=== PATIENT | male | born 1955 | race Caucasian/White ===

== ENCOUNTER → 2023-06-12 10:00 | Outpatient (REF) | payer OTHER, SELFPAY | LOC: HWRAD 10:00 | PROVIDERS: ATTENDING PHYSICIAN Internal Medicine Gastroenterology; FAMILY PHYSICIAN Nurse Practitioner | DX: R14.0 Abdominal distension (gaseous) (principal) | CPT/HCPCS: 74177; Q9967 ==

== ENCOUNTER 2023-08-10 15:01 | Emergency (ER) | payer OTHER, SELFPAY ==
[2023-08-10 15:26] VITALS: BP 149/78
[2023-08-10 15:47] LABS: % Basophils 0.3 % (0-2); % Eosinophils 1.9 % (0-6); % Immature Granulocytes 0.5 % (0-0.5); % Lymphocytes 20.3 % (20.5-51.1); % Monocytes 11.3 % (1.7-9.3); % Neutrophils 65.7 % (42.2-75.2); Absolute Eosinophils 0.2 10^3/uL (0-0.7); Absolute Lymphocytes 1.8 10^3/uL (1.2-3.4); Absolute Neutrophils 5.8 10^3/uL (1.4-6.5); Hematocrit 52.3 % (39.0-52.0); Hemoglobin 17.6 g/dL (13.0-18.0); Mean Corp Hgb Conc. 33.7 g/dL (33.0-37.0); Mean Corpuscular Hgb 30.6 pg (27.0-31.0); Mean Platelet Volume 9.8 fL (7.4-10.4); Nucleated Red Blood Cells % 0 % (-); Platelet Count 131 10^3/uL (130-400); Red Blood Cell Count 5.75 10^6/uL (4.70-6.10); Red Cell Dist. Width 13.6 % (11.5-14.5); White Blood Cell Count 8.8 10^3/uL (4.8-10.8)
[2023-08-10 16:01] LABS: ALT (SGPT) 35 U/L (0-50); AST (SGOT) 37 U/L (17-59); Albumin 4.6 g/dl (3.5-5.0); Alkaline Phosphatase 60 U/L (38-126); Blood Urea Nitrogen 21 mg/dl (9-20); Calcium 9.8 mg/dl (8.4-10.2); Carbon Dioxide 28 mmol/L (22-30); Chloride 102 mmol/L (98-107); Glucose 119 mg/dl (70-99); Sodium 137 mmol/L (135-145); Total Protein 7.4 g/dl (6.3-8.2); eGFR > 60.00
[2023-08-10 16:10] LABS: Troponin I < 0.012 ng/ml
[2023-08-10 19:04] VITALS: BMI 32.6
[2023-08-10 19:08] VITALS: BP 148/81
--- NOTE | 2023-08-10 19:40 | ED.GENMED ---
History of Present Illness
General
Chief Complaint: Chest Pain
Source: patient
Exam Limitations: none
Time Seen by Provider: 08/10/23 19:21
Travel History
Have you had any contact with someone who has COVID-19?: No
Do you have any symptoms of coronavirus? Fever > 100 degrees, chills, cough, shortness of breath, sore throat, loss of taste or smell, muscle aches, or headache?: No
History of Present Illness
History of Present Illness:
See MDM
Past History
Past History
ED Past Medical History: CAD and HTN
ED Past Surgical History: Appendectomy, Cardiac (cardiac stenting), Orthopedic (left rotator cuff, right quadricep repiar, bilateral elbow repair, left hip replacement sinus surgery), Tonsilectomy and Other (sinus surgery)
Social History
Tobacco: Non-smoker
Alcohol: Occasional
Drug: None
Personal:
Living: with family
Phy Exam
Physical Exam
Physical Exam:
See MDM
Scores
Heart Score for Chest Pain Patients
STEMI patient?: No
History: Slightly or Non-Suspicious
ECG: Nonspecific Repolarization
Age: >45 - <65 years
Risk Factors: >/= 3 Risk Factors or History of CAD
Troponin: </= Normal Limit
Heart Score for Chest Pain Patients: 4
Heart Score Risk: 20.3% MACE over next 6 weeks
Course
Orders/Labs/Results
Orders:
Orders
08/10/23 15:10
Electrocardiogram (*1) Urgent
Reason for Study: Chest Pain
08/10/23 15:11
EKG- Treatment ONCE
08/10/23 15:36
Complete Blood Count/With Diff Urgent
Comprehensive Metabolic Panel Urgent
Troponin I Urgent
Abnormal Lab Results
08/10/23
15:36
Hct 52.3 H %
(39.0-52.0)
Absolute Monos (auto) 1.0 H 10^3/uL
(0.1-0.6)
Lymphocytes % 20.3 L %
(20.5-51.1)
Monocytes % 11.3 H %
(1.7-9.3)
BUN 21 H mg/dl
(9-20)
Glucose 119 H mg/dl
(70-99)
08/10/23 15:36
08/10/23 15:36
Vital Signs
Initial and Last Documented VS:
Initial Vital Signs
Temp Pulse Resp BP Pulse Ox
98.1 F 60 16 149/78 99
08/10/23 15:26 08/10/23 15:26 08/10/23 15:26 08/10/23 15:26 08/10/23 15:26
Last Documented Vital Signs
Temp Pulse Resp BP Pulse Ox
98.1 F 60 16 149/78 100
08/10/23 15:26 08/10/23 15:26 08/10/23 15:26 08/10/23 15:26 08/10/23 19:09
MDM/Problems Addressed
Differential Diagnosis Includes:
HPI and MDM Narrative:
67-year-old male presenting with resolved chest discomfort. He noticed random chest pain a few days ago. He then noticed it yesterday. Does not appear to be completely associated with exertion. This is a different feeling that he had a few years
ago when he was diagnosed with coronary artery disease and required a stent. He did call his animal care technician and they are planning for follow-up CT coronary arteries. Patient acknowledges that he thinks he is okay but wanted to make sure.
EKG is unchanged from prior. Troponin negative. Given the ongoing symptoms with negative troponin, doubt ACS. Patient feels comfortable going home and will follow-up with his animal care technician
Physical exam
General: Well appearing and non-toxic
HEENT: protecting airway
Neck: appears supple
CV: No evidence of cyanosis. Regular rate and rhythm
Resp: No accessory muscle use. Lungs clear
Abd: Non-distended
Extremities: No deformities. No lower leg edema
Neuro: alert
Psych: Normal affect
Skin: Intact
Problems Addressed including Acute and Chronic Conditions affecting care:
1. Chest pain
Acuity: acute
Prognosis: stable
Details: Given the intermittent symptoms that are not completely associated with exertion in addition to unchanged EKG and normal troponin, doubt ACS
Updates
Will place on cardiac callback tracker. Patient feels comfortable going home
Differential Diagnosis (but not limited to): Acute coronary syndrome, noncardiac chest pain, esophagitis
Testing considered: Chest x-ray but symptoms have completely resolved
Drug therapy (if applicable): OTC meds, please see d/c instruction regarding Rx drugs
Amount and/or Complexity of Data Reviewed
Clinical info obtained from: Patient
External data reviewed: N/A
Labs I independently reviewed (but not limited to): Troponin negative
Radiology: N/A
Pulse Ox: not hypoxic
EKG independently reviewed: Sinus rhythm, normal axis, no STEMI
Sales Promotion Officer: N/A
Critical Care: N/A
Risk of Complication:
Social Determinants of health: Good social support
Discussed with other providers: N/A
Escalation of Care includes Admit/Obs: After being observed in the Emergency Department, pt stable for discharge.
Occasional wrong word or 'sound a like' substitutions may have occurred due to the inherent limitations of voice recognition software. Read the chart carefully and recognize, using context, where substitutions have occurred.
*Critical Care Note
Total Time (30-74mins, 75-104mins- exclusive of procedures): Not Applicable
ED Attending Note
-
Portions of this chart may have been created with voice recognition software.� Occasional wrong word or��sound alike� substitutions may have occurred due to the inherent limitations of voice recognition software.
Discharge Plan
Departure
Patient Disposition: Home (Routine Discharge)
Date of Disposition: 08/10/23
Time of Disposition: 19:41
Patient with high blood pressure during this ER visit?: Yes
Discharge Problem:
Chest pain
Instructions: Chest Pain DCA Follow Up
Prescriptions:
No Action
atorvastatin 40 MG tablet
40 mg PO QPM
aspirin 81 MG tablet,delayed release (DR/EC)
81 mg PO DAILY
nitroglycerin 0.4 MG tablet, sublingual
0.4 mg sublingual [id number] PRN (Reason: chest pain) Qty: 25 2RF
multivitamin 1 EACH tablet
1 ea PO DAILY
lisinopril 20 MG tablet
20 mg PO DAILY
ergocalciferol (vitamin D2) 400 UNIT tablet
400 unit PO DAILY
ferrous sulfate [Iron (ferrous sulfate)] 325 MG tablet
325 mg PO MOWEFR
saw palmetto 500 MG capsule
500 mg PO MOTUWETH
testosterone cypionate 200 MG/ML oil
200 mg IM Q2W
fish oil-dha-epa 1 EACH capsule
1 cap PO MOTUWETHFR
Metamucil Sugar-Free (aspart) 283 GM powder
1 scoop PO DAILY
CalMag Thins 1 EACH tablet
1 ea PO DAILY
Stress B-Complex 1 EACH tablet
1 tab PO DAILY
turmeric 400 MG capsule
400 mg PO DAILY
Gnc Triflex
1 tab PO DAILY
esomeprazole magnesium [Nexium] 40 MG capsule,delayed release(DR/EC)
40 mg PO DAILY PRN (Reason: heartburn)
nebivolol [Bystolic] 5 mg tablet
5 mg PO DAILY
prasugrel 10 mg Tablet
10 mg PO DAILY Qty: 90 0RF
Activity Restrictions/Additional Instructions:
Please return for any worsening symptoms.
You may return at any time if you have further concerns.
Please follow up with your doctor at the first available appointment, preferably this week.
You were placed on the cardiac callback tracker. Someone from their office should call you in the next few days. If you do not hear from them in the next few days, please give them a call.
Thank you for choosing [facility].
Interventions
Interventions:
*Risk Screen - Suicide Last Done: 08/10/23 19:05
*General Assessment Last Done: 08/10/23 19:05
*Neglect/Abuse Screening Last Done: 08/10/23 19:05
ED- Fall Risk Assessment Last Done: 08/10/23 19:09
*ED COVID-19 Vaccine History Last Done: 08/10/23 15:26
ED- Cardiac Assessment Last Done: 08/10/23 19:08
Discharge Date and Time
Print Language: MALAY
== END 2023-08-10 19:59 | disposition home or self-care (01) ==
LOC: EMR 15:01
PROVIDERS: Emergency Medicine; EMERGENCY PHYSICIAN Student in an Organized Health Care Education/Training Program; FAMILY PHYSICIAN Internal Medicine
DX: R07.89 Other chest pain (principal); I10 Essential (primary) hypertension
CPT/HCPCS: 99284; 80053; 84484; 85025; 93005

== ENCOUNTER → 2023-08-13 11:50 | Outpatient (REF) | payer OTHER, SELFPAY | LOC: DHCBC/DCA 11:50 | PROVIDERS: ATTENDING PHYSICIAN Physician Assistant; FAMILY PHYSICIAN Internal Medicine | DX: I25.10 Atherosclerotic heart disease of native coronary artery without angina pectoris (principal); I25.2 Old myocardial infarction; Z95.5 Presence of coronary angioplasty implant and graft; E78.00 Pure hypercholesterolemia, unspecified; I10 Essential (primary) hypertension; R07.9 Chest pain, unspecified | CPT/HCPCS: 78452; 93017; A9500 ==

== ENCOUNTER → 2023-10-01 07:30 | Outpatient (REF) | payer OTHER, SELFPAY | LOC: HWRAD 07:30 | PROVIDERS: ATTENDING PHYSICIAN Internal Medicine Gastroenterology; FAMILY PHYSICIAN Internal Medicine | DX: R07.89 Other chest pain (principal) | CPT/HCPCS: 76700 ==

== ENCOUNTER → 2023-10-16 08:48 | Outpatient (REF) | payer OTHER, SELFPAY | LOC: HWRAD 08:48 | PROVIDERS: ATTENDING PHYSICIAN Internal Medicine | DX: R04.2 Hemoptysis (principal) | CPT/HCPCS: 71270; Q9967 ==